=== PATIENT | male | born 2000 | race Caucasian/White ===

== ENCOUNTER → 2018-01-14 | Day surgery (SDC) | payer SELFPAY ==
[~2018-01-14] MED LIST: Bacitracin Zinc Ointment 30 gm TUBE ONE; Betamet Acet/Betamet Na Ph 30 MG/5 ML VIAL ONE; Bupivacaine 0.5% 10 ML VIAL ONE; Bupivacaine PF 0.5% 30 ML VIAL ONE; CEFAZOLIN 1 GM, Syringe 2.5 ML in Sterile Water 7.5 ML SLOW IVP SCH; Fentanyl 250 MCG/5 ML VIAL ONE; Ketorolac Tromethamine 30 MG/ML VIAL ONE; Lidocaine 1% PF 5 ML VIAL ONE; Midazolam HCl 2 mg/2 ml Vial ONE; PROPOFOL 200 MG/20 ML VIAL ONE; Sodium Chloride 0.9% 10 ML ONE
--- NOTE | 2018-01-14 15:46 | RAD ---
3 VIEWS LEFT HAND: Date: 01/14/18 COMPARISON: None. HISTORY: Thumb laceration with pain. FINDINGS: Three views of the left hand show no evidence of acute fracture or dislocation. No soft tissue swelli ng is seen. No radiopaque foreign body is present. IMPRESSION: Unremarkable exam. POS: [facility]
[2018-01-14 15:58] LABS: #Basophils 0.1 thou/uL (0.0-0.2); #Eosinphils 0.5 thou/uL (0.0-0.7); #Lymphocytes 3.1 thou/uL (1.20-3.40); #Monocytes 0.7 thou/uL (0.11-0.59); #Neutrophils 6.6 thou/uL (1.40-6.50); %Basophils 0.8 % (0.0-1.0); %Eosinophils 4.2 % (0.0-10.0); %Lymphocytes 28.5 % (28.0-48.0); %Monocytes 6.1 % (0.0-4.0); %Neutrophils 60.5 % (31.0-61.0); Hemoglobin 16.6 g/dL (14.0-18.0); Mean Corpuscular HGB CONC 33.3 g/dL (32.0-36.0); Mean Corpuscular Hemoglobin 30.7 pg (25.0-35.0); Mean Corpuscular Volume 92.3 fl (77.0-87.0); Mean Platelet Volume 7.5 fL (7.4-10.4); Platelet Count 270 thou/uL (130-400); Red Blood Cell (RBC) Count 5.42 mill/uL (4.00-5.20); White Blood Cell (WBC) Count 10.9 thou/uL (4.8-10.8)
--- NOTE | 2018-01-15 12:59 | OP ---
DATE OF PROCEDURE: 01/14/2018 PREOPERATIVE DIAGNOSES: Left thumb wound 3 cm with possible tendon involvement found, the left thum b wound with minimal contamination. Left thumb wound with 100% extensor tendon laceration, EPL dista l to the EPB insertion zone 2. COMPLICATIONS: None. TOURNIQUET TIME: 42 minutes. ESTIMATED BLOOD LOSS: 10 mL. PROCEDURE PERFORMED: 1. Wound debridement. A. Excision technique. B. Dip down to including where the sharp object touched the bone and lacerated the periosteum, but d id not cause a fracture. C. The instruments used include curet, tenotomy scissors, Adson's, 11 blade knife, and [place] blade and the contamination was minimal. 2. Wound closure, single layer 3.0 cm left thumb. 3. Repair of pollicis longus using multiple buried [id number] sutures of 4-0 Prolene, which gav e excellent apposition and anatomic position left thumb. SURGEON: Yves Springer M.D. 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 He had been counseled on failure, infection chance and the need to do the procedure. DESCRIPTION OF PROCEDURE: After successful general LMA technique, the limb was prepped and draped. Time out done appropriately and we identified the site and side, surgeon and the suggested operation, all verified on the consent. We then inflated tourniquet after exsanguination of limb to 250 mmHg pressure. We extended the incis ion 1 cm proximal and 5 mm distal and we easily identified the tendon. There was no evidence of natalie r superficial radial nerve area damage, branch damage. There was a mild amount of a particle contami nation on the radial dorsal side so the contamination was debrided using instruments as above as well as a 1 mm circumferential area around the laceration of the skin and dermis and epidermis and fat. There was of a complete laceration through the tendon, including the laceration repair of the periost eum, after we did our debridement in the techniques listed above, irrigated with 1 liter normal salin e with antibiotics inside under bulb syringe pressure, we had a clean appearing wound, and we then re paired with a buried [id number] suture. The periosteum x2 with 3-0 Vicryl and then placed the i nterphalangeal joint in hyperextension with padding, kept it here and then repaired without any undue tension using xrvslc-kt-[id number] sutures x4. The extensor pollicis longus terminal tendon mechanism. Extension was restored. There was no gap formation in this construct, the patient had the wound irrigated once again. Tourni quet deflated. Hemostasis obtained. The wound edges were now very cleaned out to resection and we c losed the wound in a single layer using a 4-0 nylon interrupted simple pattern. Bulky dressing was a pplied and we give a total of 20 Marcaine 0.5%, 10 before the incision and 10 after the incision was closed dorsal block and infiltrative technique. A splint was applied. The patient left the operatin g room without evidence of anesthetic or operative complication.
== END ==
LOC: ERS 14:59 → SDC 17:25
PROVIDERS: ATTEND Orthopaedic Surgery Hand Surgery
PROC: 0LM80ZZ Reattachment of Left Hand Tendon, Open Approach (ICD-10-PCS; principal; 2018-01-14)
DX: S66.222A Laceration of extensor muscle, fascia and tendon of left thumb at wrist and hand level, initial encounter (principal); S61.012A Laceration without foreign body of left thumb without damage to nail, initial encounter; F17.210 Nicotine dependence, cigarettes, uncomplicated; W25.XXXA Contact with sharp glass, initial encounter
CPT/HCPCS: 85025; 86850; 86900; 86901; 96374; A4216; J0690; J0702; J1885; J2001; J2250; J2704; J3010; J3490; S0020